=== PATIENT | female | born 1990 | race African-American/Black ===

== ENCOUNTER 2017-03-28 10:09 | Emergency (ER) | payer BC, MEDICAID ==
[~2017-03-28] VITALS: Ht 167.6 cm; Wt 79.0 kg
[2017-03-28 10:16] VITALS: BP 125/63
== END 2017-03-28 14:58 | disposition home or self-care (01) ==
LOC: ER 13:29
DX: J09.X2 Influenza due to identified novel influenza A virus with other respiratory manifestations (principal); J45.909 Unspecified asthma, uncomplicated; Z90.49 Acquired absence of other specified parts of digestive tract
CPT/HCPCS: 87804; 99284

== ENCOUNTER 2019-10-04 13:17 | Emergency (ER) | payer MEDICAID ==
[~2019-10-04] VITALS: Ht 167.6 cm; Wt 77.0 kg
[2019-10-04 14:03] LABS: BASOPHILS % 0.8 % (0.0-2.0); EOSINOPHILS % 2.2 % (0.0-5.0); HEMATOCRIT. 39.6 % (36.0-48.0); HEMOGLOBIN. 13.3 g/dL (12.0-16.0); LYMPHOCYTES % 29.9 % (20.0-50.0); MEAN CORPUSCULAR HEMOGLOBIN 28.8 pg (28.0-32.0); MEAN CORPUSCULAR VOLUME 85.8 fL (81.0-99.0); MEAN PLATELET VOLUME 10.1 fl (7.4-10.4); MONOCYTES % 5.8 % (2.0-8.0); NEUTROPHILS % 61.3 % (40.0-76.0); PLATELET 207 x1000/uL (130-400); RED BLOOD CELL COUNT 4.62 mill/uL (4.2-5.4); RED CELL DISTRIBUTION WIDTH 14.5 % (11.6-14.6)
[2019-10-04 14:10] LABS: CHLORIDE 108 mEq/L (98-107)
[2019-10-04 14:21] LABS: CLARITY URINE CLOUDY (CLEAR); COLOR URINE YELLOW (YELLOW); KETONES URINE NEGATIVE (NEGATIVE); LEUKOCYTE ESTERASE URINE 3+ (NEGATIVE); NITRITE URINE NEGATIVE (NEGATIVE); OCCULT BLOOD URINE TRACE (NEGATIVE); PROTEIN URINE NEGATIVE (NEGATIVE); SPECIFIC GRAVITY URINE 1.016 (1.005-1.030); UROBILINOGEN URINE 0.2 E.U./dL (0.2-1.0)
[2019-10-04 14:33] LABS: B-HCG QUANTITATIVE 5283 mIU/mL (<3)
[2019-10-04 15:15] VITALS: BP 133/76
== END 2019-10-04 15:20 | disposition home or self-care (01) ==
LOC: ER 13:17
DX: O36.4XX0 Maternal care for intrauterine death, not applicable or unspecified (principal); O26.892 Other specified pregnancy related conditions, second trimester; Z90.49 Acquired absence of other specified parts of digestive tract; Z3A.15 15 weeks gestation of pregnancy
CPT/HCPCS: 36415; 76801; 80053; 81003; 84702; 85025; 99284

== ENCOUNTER 2022-04-29 03:58 | Emergency (ER) | payer MEDICAID ==
[~2022-04-29] VITALS: Ht 167.6 cm; Wt 82.0 kg
[2022-04-29 04:12] VITALS: BP 116/73
[2022-04-29 07:08] LABS: BASOPHILS % 0.4 % (0.0-2.0); HEMATOCRIT. 37.1 % (36.0-48.0); HEMOGLOBIN. 12.3 g/dL (12.0-16.0); LYMPHOCYTES % 27.5 % (20.0-50.0); MEAN CORPUSCULAR HEMOGLOBIN 27.8 pg (28.0-32.0); MEAN CORPUSCULAR VOLUME 83.9 fL (81.0-99.0); MONOCYTES % 7.6 % (2.0-8.0); NEUTROPHILS % 63.5 % (40.0-76.0); PLATELET 268 x1000/uL (130-400); RED BLOOD CELL COUNT 4.42 mill/uL (4.2-5.4); RED CELL DISTRIBUTION WIDTH 14.4 % (11.6-14.6)
[2022-04-29 07:18] LABS: CHLORIDE 103 mEq/L (98-107)
[2022-04-29 07:47] LABS: B-HCG QUANTITATIVE 105241 mIU/mL (<3)
[2022-04-29] MEDS ORDERED: TOPUD PO (08:10)
== END 2022-04-29 08:23 | disposition home or self-care (01) ==
LOC: ER 03:58
DX: O20.0 Threatened abortion (principal); Z3A.10 10 weeks gestation of pregnancy
CPT/HCPCS: 36415; 76801; 76817; 80053; 81025; 84484; 84702; 85025; 86850; 86900; 86901; 93005; 99284; Z7610